=== PATIENT | female | born 1965 | race Caucasian/White ===

== ENCOUNTER 2017-09-09 14:44 | Inpatient (IN) | payer MEDICAID, OTHER ==
[~2017-09-09] VITALS: Ht 160 cm; Wt 70.8 kg
[~2017-09-09 14:44] MED LIST: ADVA250A INH; BENZ1TAB PO; COGE1INJ IM; LURA40 PO; VENL100T PO; VIST25CA PO; ZOCO5TAB PO
[2017-09-09 15:18] VITALS: BP 126/105; PULSE 97; RESP 18; TEMP 98.2; O2SAT 98
--- NOTE | 2017-09-09 15:38 | PD ---
HPI Chief Complaint: psychiatric Time Seen by Provider: 15:25 Travel History International Travel<30 days: No Contact w/Intl Traveler<30days: No Traveled to known affect area: No History of Present Illness HPI 51-year-old female requesting psychiatric evaluation. Patient has history of schizophrenia. Patient states that she has not taken her medications for the past 2 days. Patient called EMS to get to the hospital. Patient states that she told EMS that she had chest pain however she denied chest pain to me. Patient denies any headache. Patient denies any neck pain. Patient denies any chest pain or shortness of breath. Patient denies abdominal pain. Patient denies any focal weakness or numbness of extremity. Patient has history of asthma and hyperlipidemia. Patient denies any alcohol or drug abuse. PFSH Past Medical History Asthma: Yes Anxiety: Yes Depression: Yes High Cholesterol: Yes Diabetes: No Diminished Hearing: No Genitourinary: Yes (OVERACTIVE BLADDER) Psychiatric: Yes Respiratory: Yes (ASTHMA) Immunizations Current: No Schizophrenia: Yes Menopausal: Yes : 4 Para: 0 : 4 Past Surgical History Genitourinary Surgery: Yes (MESH-SLING BLADDER 2005) Other Surgery: Yes (PLASTIC SURGERY: BREASTS, NOSE, EYELIDS) Social History Alcohol Use: Yes (OCC) Tobacco Use: Yes (1ppd) Substance Use: Yes Allergies-Medications (Allergen,Severity, Reaction): Coded Allergies: tramadol (Verified Allergy, Severe, ITCHING, 09/09/17) Reported Meds & Prescriptions Reported Meds & Active Scripts Active Reported Zocor (Simvastatin) 5 Mg Tab 5 Mg PO DAILY Vistaril (Hydroxyzine Pamoate) 25 Mg Cap 25 Mg PO HS Latuda (Lurasidone) 40 Mg Tab 40 Mg PO DAILY Effexor (Venlafaxine HCl) 100 Mg Tab 100 Mg PO Q12H Advair Diskus Inh (Fluticasone-Salmeterol Inh) 250-50 Mcg/Blist Aer 1 Puff INH BID Rinse mouth after use. Review of Systems General / Constitutional: No: Fever Eyes: No: Visual changes HENT: No: Headaches Cardiovascular: No: Chest Pain or Discomfort Respiratory: No: Shortness of Breath Gastrointestinal: No: Abdominal Pain Genitourinary: No: Dysuria Musculoskeletal: No: Pain Skin: No Rash Neurologic: No: Weakness Psychiatric: No: Depression Endocrine: No: Polydipsia Hematologic/Lymphatic: No: Easy Bruising Physical Exam Narrative GENERAL: Well-nourished, well-developed patient. SKIN: Focused skin assessment warm/dry. HEAD: Normocephalic. EYES: No scleral icterus. No injection or drainage. NECK: Supple, trachea midline. No JVD or lymphadenopathy. CARDIOVASCULAR: Regular rate and rhythm without murmurs, gallops, or rubs. RESPIRATORY: Breath sounds equal bilaterally. No accessory muscle use. GASTROINTESTINAL: Abdomen soft, non-tender, nondistended. MUSCULOSKELETAL: No cyanosis, or edema. BACK: Nontender without obvious deformity. No CVA tenderness. Neurologic exam normal. Data Data Last Documented VS Vital Signs Date Time Temp Pulse Resp B/P (MAP) Pulse Ox O2 Delivery O2 Flow Rate FiO2 09/09/17 15:18 98.2 97 18 126/105 (112) 98 Orders Orders Complete Blood Count With Diff (09/09/17 15:33) Comprehensive Metabolic Panel (09/09/17 15:33) Thyroid Stimulating Hormone (09/09/17 15:33) Psych Screen (09/09/17 15:33) Drug Screen, Random Urine (09/09/17 15:33) Electrocardiogram (09/09/17 15:34) Labs Laboratory Tests Test 09/09/17 15:50 White Blood Count 7.9 TH/MM3 Red Blood Count 4.76 MIL/MM3 Hemoglobin 15.2 GM/DL Hematocrit 44.7 % Mean Corpuscular Volume 93.9 FL Mean Corpuscular Hemoglobin 31.9 PG Mean Corpuscular Hemoglobin Concent 33.9 % Red Cell Distribution Width 13.4 % Platelet Count 245 TH/MM3 Mean Platelet Volume 9.1 FL Neutrophils (%) (Auto) 63.7 % Lymphocytes (%) (Auto) 26.1 % Monocytes (%) (Auto) 9.2 % Eosinophils (%) (Auto) 0.6 % Basophils (%) (Auto) 0.4 % Neutrophils # (Auto) 5.0 TH/MM3 Lymphocytes # (Auto) 2.1 TH/MM3 Monocytes # (Auto) 0.7 TH/MM3 Eosinophils # (Auto) 0.0 TH/MM3 Basophils # (Auto) 0.0 TH/MM3 CBC Comment DIFF FINAL Differential Comment Blood Urea Nitrogen 9 MG/DL Creatinine 1.02 MG/DL Random Glucose 121 MG/DL Total Protein 8.7 GM/DL Albumin 4.6 GM/DL Calcium Level 8.8 MG/DL Alkaline Phosphatase 88 U/L Aspartate Amino Transf (AST/SGOT) 21 U/L Alanine Aminotransferase (ALT/SGPT) 26 U/L Total Bilirubin 0.7 MG/DL Sodium Level 140 MEQ/L Potassium Level 3.9 MEQ/L Chloride Level 106 MEQ/L Carbon Dioxide Level 23.5 MEQ/L Anion Gap 11 MEQ/L Estimat Glomerular Filtration Rate 57 ML/MIN Thyroid Stimulating Hormone 3rd Gen 1.340 uIU/ML Urine Opiates Screen NEG Urine Barbiturates Screen NEG Urine Amphetamines Screen NEG Urine Benzodiazepines Screen NEG Urine Cocaine Screen NEG Urine Cannabinoids Screen NEG MDM Medical Decision Making Medical Screen Exam Complete: Yes Emergency Medical Condition: Yes Interpretation(s) 1704 PM. CBC within normal limit. Creatinine 1.02. Urine drug screen negative. Differential Diagnosis Differential diagnosis including schizophrenia, adjustment disorder, psychosis Narrative Course 51-year-old female requesting psychiatric evaluation. History of schizophrenia. 1704 PM. Patient is medically cleared for psychiatric evaluation and disposition. Dada Johnson MD Sep 09, 2017 15:38
[2017-09-09 16:23] LABS: BASOPHIL % 0.4 % (0.0-2.0); EOSINOPHIL % 0.6 % (0.0-4.0); HEMATOCRIT 44.7 % (35.0-46.0); HEMOGLOBIN 15.2 GM/DL (11.6-15.3); LYMPH % 26.1 % (9.0-44.0); LYMPHOCYTE # 2.1 TH/MM3 (1.0-4.8); MEAN CELL VOLUME 93.9 FL (80.0-100.0); MEAN CORPUSCULAR HEMOGLOBIN 31.9 PG (27.0-34.0); MEAN CORPUSCULAR HGB CONC 33.9 % (32.0-36.0); MEAN PLATELET VOLUME 9.1 FL (7.0-11.0); MONO % 9.2 % (0.0-8.0); MONOCYTE # 0.7 TH/MM3 (0-0.9); NEUT % 63.7 % (16.0-70.0); PLATELET COUNT 245 TH/MM3 (150-450); RED BLOOD COUNT 4.76 MIL/MM3 (4.00-5.30); RED CELL DISTRIBUTION WIDTH 13.4 % (11.6-17.2); WHITE BLOOD COUNT 7.9 TH/MM3 (4.0-11.0)
[2017-09-09 16:36] LABS: ALBUMIN 4.6 GM/DL (3.4-5.0); ALT (GPT) 26 U/L (10-53); AST (GOT) 21 U/L (15-37); BICARBONATE 23.5 MEQ/L (21.0-32.0); BLOOD UREA NITROGEN 9 MG/DL (7-18); CALCIUM 8.8 MG/DL (8.5-10.1); CHLORIDE 106 MEQ/L (98-107); CREATININE 1.02 MG/DL (0.50-1.00); GLOMERULAR FILTRATION RATE 57 ML/MIN (>89); GLUCOSE,RANDOM 121 MG/DL (74-106); SODIUM (NA) 140 MEQ/L (136-145)
[2017-09-09 16:46] LABS: ALKALINE PHOSPHATASE 88 U/L (45-117); TOTAL BILIRUBIN ADULT 0.7 MG/DL (0.2-1.0); TOTAL PROTEIN 8.7 GM/DL (6.4-8.2)
[2017-09-09 19:20] VITALS: BP 128/75; PULSE 89; RESP 18; O2SAT 97
[2017-09-09] MEDS ORDERED: diphenhydrAMINE HCL 50 MG CAP PO ONE (20:45)
[2017-09-09 21:05] VITALS: BP 123/66; PULSE 88; RESP 18; TEMP 98.4
[2017-09-10 06:39] VITALS: BP 97/67; PULSE 60; RESP 16; O2SAT 97
[2017-09-10 10:57] VITALS: BP 112/76; PULSE 89; RESP 18; O2SAT 98
[2017-09-10 17:46] VITALS: BP 121/77; PULSE 97; RESP 18; O2SAT 97
[2017-09-10] MEDS ORDERED: ALUMINUM/MAGNESIUM/SIMETH 30 ML CUP PO PRN (21:00)
[2017-09-10] MEDS ORDERED: MAGNESIUM HYDROXIDE SUSP 30 ML CUP PO PRN (21:00)
[2017-09-10] MEDS ORDERED: LORazepam 2 MG/ML VIAL IM PRN (21:00)
[2017-09-10] MEDS ORDERED: LORazepam 1 MG TAB PO PRN (21:00)
[2017-09-10 22:30] VITALS: BP 143/93; PULSE 85; RESP 16; TEMP 98.2; O2SAT 97
[2017-09-11 05:59] VITALS: BP 115/65; PULSE 67; RESP 16; TEMP 97.8; O2SAT 97
[2017-09-11] MEDS: BUDESONIDE-FORMOTEROL 160/4.5 MCG INHALER INH SCH ×3 (08:18→20:54)
[2017-09-11 08:41] LABS: CHOLESTEROL 205 MG/DL (120-200); MAGNESIUM 2.4 MG/DL (1.5-2.5); PHOSPHORUS 3.6 MG/DL (2.5-4.9); TRIGLYCERIDES 125 MG/DL (42-150)
[2017-09-11 09:07] LABS: CHOLESTEROL/ HDL RATIO 3.35 RATIO; HDL CHOLESTEROL 61.1 MG/DL (40.0-60.0); LDL CHOLESTEROL 119 MG/DL (0-99)
[2017-09-11] MEDS ORDERED: hydrOXYzine HCL 50 MG TAB PO PRN (13:30)
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
[2017-09-11] MEDS: LURASIDONE 40 MG TAB PO SCH (14:27)
[2017-09-11 16:39] LABS: HEMOGLOBIN A1C 5.4 % (4.3-6.0)
[2017-09-11] MEDS: ACETAMINOPHEN 325 MG TAB PO PRN (17:00)
[2017-09-11 17:34] VITALS: BP 112/74; PULSE 93; RESP 14; TEMP 97.8
[2017-09-11] MEDS: PRAVASTATIN SOD 10 MG TAB PO SCH (20:51)
[2017-09-11] MEDS: diphenhydrAMINE HCL 50 MG CAP PO PRN (20:52)
[2017-09-11] MEDS: VENLAFAXINE HCL 25 MG TAB PO SCH (20:52)
[2017-09-12 06:14] VITALS: BP 120/71; PULSE 65; RESP 16; TEMP 98.1; O2SAT 97
[2017-09-12] MEDS: LURASIDONE 40 MG TAB PO SCH (08:52)
[2017-09-12] MEDS: BUDESONIDE-FORMOTEROL 160/4.5 MCG INHALER INH SCH ×4 (08:53→20:27)
[2017-09-12] MEDS: VENLAFAXINE HCL 25 MG TAB PO SCH ×2 (08:53→20:28)
[2017-09-12] MEDS ORDERED: SIMVASTATIN 5 MG PO SCH (09:00)
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
--- NOTE | 2017-09-12 14:49 | HHI.PYPN ---
Subjective Chief Complaint: patient psychotic with auditory hallucinations paranoid Remarks Patient seen in her room with nurse mine, chart review, patient compliant medications. Patient states she is feeling somewhat better. Now denies voices or visions and denies suicidality. For now continue treatment Review of Systems Except as stated in HPI: all other systems reviewed are Neg Mental Status Examination Appearance: Disheveled Consciousness: Alert (mildly) Orientation: Person, Place, Date/Time, Situation Motor Activity: Normal gait Speech: Unremarkable Language: Adequate Fund of Knowledge: Adequate Attention and Concentration: Other (fair) Memory: Unremarkable Affect: Irritable, Sad Thought Process & Associations: Disorganized Thought Content: Bizarre thinking Hallucination Type: None Delusion Type: Paranoid Suicidal Ideation: No Suicidal Plan: No Suicidal Intention: No Homicidal Ideation: No Homicidal Plan: No Homicidal Intention: No Insight: Poor Judgment: Poor Results Vitals/IOs Vital Signs Date Time Temp Pulse Resp B/P (MAP) Pulse Ox O2 Delivery O2 Flow Rate FiO2 09/12/17 06:14 98.1 65 16 120/71 (87) 97 09/10/17 17:46 Room Air Intake and Output 09/12/17 09/12/17 09/13/17 08:00 16:00 00:00 Intake Total 480 ml Balance 480 ml Assessment & Plan Problem List: (1) Schizophrenia ICD Codes: F20.9 - Schizophrenia, unspecified Status: Chronic Assessment & Plan Estimated LOS: days patient showing some slight improvement. Compliant medication. She still somewhat vigilant for she does deny voices and suicidality. For now continue treatment Justification for Cont. Inpt. At this time patient will decompensate if placed in the lower level of care Discharge Planning To be determined Request HC Surrog/Guard Advoc?: No Problem Qualifiers (1) Schizophrenia: Qualified Codes: F20.0 - Paranoid schizophrenia Eleazar Overton MD Sep 12, 2017 14:49
[2017-09-12 18:00] VITALS: BP 111/72; PULSE 90; RESP 16; TEMP 97.8; O2SAT 98
[2017-09-12] MEDS: diphenhydrAMINE HCL 50 MG CAP PO PRN (20:28)
[2017-09-12] MEDS: PRAVASTATIN SOD 10 MG TAB PO SCH (20:28)
[2017-09-13 06:06] VITALS: BP 112/63; PULSE 100; RESP 15; TEMP 98.3; O2SAT 99
[2017-09-13] MEDS: LURASIDONE 40 MG TAB PO SCH (08:52)
[2017-09-13] MEDS: VENLAFAXINE HCL 25 MG TAB PO SCH ×2 (08:52→22:07)
[2017-09-13] MEDS: BUDESONIDE-FORMOTEROL 160/4.5 MCG INHALER INH SCH ×3 (09:00→21:00)
[2017-09-13] MEDS: ACETAMINOPHEN 325 MG TAB PO PRN (09:30)
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
[2017-09-13 18:06] VITALS: BP 119/77; PULSE 99; RESP 18; TEMP 97.6; O2SAT 97
[2017-09-13] MEDS: PRAVASTATIN SOD 10 MG TAB PO SCH (22:08)
[2017-09-13] MEDS: diphenhydrAMINE HCL 50 MG CAP PO PRN (22:08)
[2017-09-14 06:07] VITALS: BP 125/72; PULSE 72; RESP 18; TEMP 98.8; O2SAT 98
[2017-09-14] MEDS: LURASIDONE 40 MG TAB PO SCH (09:00)
[2017-09-14] MEDS: BUDESONIDE-FORMOTEROL 160/4.5 MCG INHALER INH SCH ×2 (09:00→21:45)
[2017-09-14] MEDS: VENLAFAXINE HCL 25 MG TAB PO SCH ×2 (09:00→21:08)
--- NOTE | 2017-09-14 13:04 | HHI.PYPN ---
Subjective Chief Complaint: patient psychotic with auditory hallucinations paranoid Remarks Patient was seen and case discussed with nursing. Patient is rather concrete with a bizarre thought process. She is perseverant on smoking when she leaves. She denies auditory visual hallucinations. Behaving well on the unit Mental Status Examination Appearance: Disheveled Consciousness: Alert Orientation: Person, Place, Date/Time Motor Activity: Other (No motor abnormalities noted.) Speech: Unremarkable Language: Adequate Fund of Knowledge: Adequate Attention and Concentration: Other (fair) Memory: Unremarkable Mood: Other (Depressed) Affect: Blunt Thought Process & Associations: Tangential Thought Content: Bizarre thinking, Delusional Hallucination Type: None Delusion Type: Paranoid Suicidal Ideation: No Suicidal Plan: No Suicidal Intention: No Homicidal Ideation: No Homicidal Plan: No Homicidal Intention: No Insight: Poor Judgment: Poor Results Vitals/IOs Vital Signs Date Time Temp Pulse Resp B/P (MAP) Pulse Ox O2 Delivery O2 Flow Rate FiO2 09/14/17 06:07 98.8 72 18 125/72 (89) 98 09/10/17 17:46 Room Air Intake and Output 09/14/17 09/14/17 09/15/17 08:00 16:00 00:00 Intake Total 240 ml Balance 240 ml Assessment & Plan Problem List: (1) Schizophrenia ICD Codes: F20.9 - Schizophrenia, unspecified Status: Chronic Assessment & Plan Nicotine patch Justification for Cont. Inpt. Patient would decompensate in a less restrictive setting Request HC Surrog/Guard Advoc?: No Problem Qualifiers (1) Schizophrenia: Qualified Codes: F20.0 - Paranoid schizophrenia Jorge Hopper DO Sep 14, 2017 13:04
[2017-09-14] MEDS: NICOTINE 14 MG/24 HR PATCH T-DERMAL SCH (14:00)
[2017-09-14 18:37] VITALS: BP 137/80; PULSE 92; RESP 17; TEMP 97.3; O2SAT 98
[2017-09-14] MEDS: REMOVE OLD NICODERM (NICOTINE) PATCH T-DERMAL SCH (21:00)
[2017-09-14] MEDS: PRAVASTATIN SOD 10 MG TAB PO SCH (21:08)
[2017-09-15 06:00] VITALS: BP 113/65; PULSE 69; RESP 18; TEMP 97.7; O2SAT 98
[2017-09-15] MEDS: LURASIDONE 40 MG TAB PO SCH (08:13)
[2017-09-15] MEDS: BUDESONIDE-FORMOTEROL 160/4.5 MCG INHALER INH SCH ×2 (08:13→21:51)
[2017-09-15] MEDS: VENLAFAXINE HCL 25 MG TAB PO SCH ×2 (08:13→21:50)
[2017-09-15] MEDS: NICOTINE 14 MG/24 HR PATCH T-DERMAL SCH (08:13)
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
[2017-09-15 18:00] VITALS: BP 105/75; PULSE 93; RESP 16; TEMP 98; O2SAT 98
[2017-09-15] MEDS: REMOVE OLD NICODERM (NICOTINE) PATCH T-DERMAL SCH (21:00)
[2017-09-15] MEDS: PRAVASTATIN SOD 10 MG TAB PO SCH (21:50)
[2017-09-16 06:05] VITALS: BP 110/60; PULSE 57; RESP 16; TEMP 97.8; O2SAT 97
[2017-09-16] MEDS: LURASIDONE 40 MG TAB PO SCH (08:43)
[2017-09-16] MEDS: BUDESONIDE-FORMOTEROL 160/4.5 MCG INHALER INH SCH (08:43)
[2017-09-16] MEDS: VENLAFAXINE HCL 25 MG TAB PO SCH (08:43)
[2017-09-16] MEDS: NICOTINE 14 MG/24 HR PATCH T-DERMAL SCH (08:43)
[2017-09-16] MEDS: REMOVE OLD NICODERM (NICOTINE) PATCH T-DERMAL SCH (08:43)
[2017-09-16] MEDS ORDERED: VENL100T PO (12:59)
[2017-09-16] MEDS ORDERED: LURA40 PO (12:59)
[2017-09-16] MEDS ORDERED: Budeson-Formot 160-4.5 Mcg Inh INH (13:00)
[2017-09-16] MEDS ORDERED: VIST25CA PO (13:00)
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
== END 2017-09-16 15:40 | disposition home or self-care (01) | DRG 885 ==
LOC: NEPD 14:44 → NEDA 09-10 20:52 → H260 09-10 21:55
PROVIDERS: ADMIT Psychiatry & Neurology Psychiatry; ATTEND Psychiatry & Neurology Psychiatry
DX: F20.0 Paranoid schizophrenia (principal); N32.81 Overactive bladder; E78.5 Hyperlipidemia, unspecified; J45.909 Unspecified asthma, uncomplicated; Z81.8 Family history of other mental and behavioral disorders; Z62.810 Personal history of physical and sexual abuse in childhood; F17.210 Nicotine dependence, cigarettes, uncomplicated; Z79.51 Long term (current) use of inhaled steroids; Z79.899 Other long term (current) drug therapy
CPT/HCPCS: 80053; 80061; 80307; 82306; 82550; 82607; 83036; 83735; 84100; 84443; 84550; 85025; 86592; 99285; Q0163

== ENCOUNTER 2017-10-01 21:13 | Emergency (ER) | payer MEDICAID, OTHER ==
[~2017-10-01 21:13] MED LIST changes: -ADVA250A INH; -BENZ1TAB PO; +Budeson-Formot 160-4.5 Mcg Inh INH; -COGE1INJ IM; -ZOCO5TAB PO
[2017-10-01 21:25] VITALS: BP 141/78; PULSE 70; RESP 18; TEMP 97.9; O2SAT 99
--- NOTE | 2017-10-01 21:57 | PD ---
HPI Chief Complaint: GI Complaint Time Seen by Provider: 21:46 Travel History International Travel<30 days: No Contact w/Intl Traveler<30days: No Traveled to known affect area: No History of Present Illness HPI 51-year-old white female presents to emergency department by EMS for evaluation of nausea vomiting and diarrhea. She states that she started feeling ill earlier today. She felt run down and generalized weakness. She states that she had some pizza earlier this evening followed by vomiting. She does report having some diarrhea throughout the day. She has just been laying around the house. She denies any fever or chills. No cough, congestion, dysuria, frequency or rashes. Symptoms are mild now but were more moderate earlier. She has a states that she feels somewhat better after vomiting. PFSH Past Medical History Asthma: Yes Anxiety: Yes Depression: Yes Cancer: No Cardiovascular Problems: No High Cholesterol: Yes COPD: No Diabetes: No Diminished Hearing: No Endocrine: No Genitourinary: No Headaches: No Immune Disorder: No Musculoskeletal: No Neurologic: No Psychiatric: Yes (Schizophrenia) Reproductive: No Respiratory: Yes (ASTHMA) Immunizations Current: No Schizophrenia: Yes (schizo-affective) Seizures: No Sleep Apnea: No ?: Not Menopausal: Yes : 4 Para: 0 : 4 Past Surgical History Abdominal Surgery: No Cardiac Surgery: No Ear Surgery: No Endocrine Surgery: No Eye Surgery: Yes Genitourinary Surgery: No Gynecologic Surgery: Yes Oral Surgery: No Thoracic Surgery: No Other Surgery: Yes (PLASTIC SURGERY: BREASTS, NOSE, EYELIDS) Social History Alcohol Use: Yes (OCC) Tobacco Use: Yes (1ppd) Substance Use: No Allergies-Medications (Allergen,Severity, Reaction): Coded Allergies: tramadol (Verified Allergy, Severe, ITCHING, 09/09/17) Reported Meds & Prescriptions Reported Meds & Active Scripts Active [Budeson-Formot 160-4.5 Mcg Inh] 60 PUFF Aero 1 Puff INH BID Vistaril (Hydroxyzine Pamoate) 25 Mg Cap 25 Mg PO HS Latuda (Lurasidone) 40 Mg Tab 40 Mg PO DAILY Effexor (Venlafaxine HCl) 100 Mg Tab 100 Mg PO Q12H Review of Systems Except as stated in HPI: all other systems reviewed are Neg Physical Exam Narrative GENERAL: Well-developed, well-nourished in no apparent distress. Nontoxic appearing. HEAD: Normocephalic, atraumatic. EYES: Pupils equal round and reactive. Extraocular motions intact. No scleral icterus. No injection or drainage. ENT: Nose clear. Throat without erythema, tonsillar hypertrophy or exudate. Uvula midline. Airway patent. NECK: Trachea midline. Supple, nontender, moves head freely. No central bony tenderness or spasm. CARDIOVASCULAR: Regular rate and rhythm without murmurs, gallops, or rubs. RESPIRATORY: Clear to auscultation. Breath sounds equal bilaterally. No wheezes , rales, or rhonchi. GASTROINTESTINAL: Abdomen soft, non-tender, nondistended. No hepato-splenomegaly , or palpable masses. No guarding. EXTREMITIES: No clubbing, cyanosis, or edema. No joint tenderness. BACK: Nontender without deformity. No flank tenderness. NEUROLOGICAL: Awake, alert and oriented x 3 .Cranial nerves grossly intact. Motor and sensory grossly within normal limits. Normal speech. Data Data Last Documented VS Vital Signs Date Time Temp Pulse Resp B/P (MAP) Pulse Ox O2 Delivery O2 Flow Rate FiO2 10/01/17 21:25 97.9 70 18 141/78 (99) 99 Orders Orders Iv Access Insert/Monitor (10/01/17 21:46) Sodium Chlor 0.9% 1000 Ml Inj (Ns 1000 M (10/01/17 22:00) Diphenhydramine Inj (Benadryl Inj) (10/01/17 22:00) Metoclopramide Inj (Reglan Inj) (10/01/17 22:00) Hyoscyamine (Levsin) (10/01/17 22:00) Ed Discharge Order (10/02/17 00:01) [facility] Medical Decision Making Medical Screen Exam Complete: Yes Emergency Medical Condition: Yes Medical Record Reviewed: Yes Differential Diagnosis Differential diagnosis: Vomiting, diarrhea, UTI, gastroenteritis Narrative Course IV access is obtained. Patient's given a liter bolus of normal saline, Benadryl 50 no grams IV, Reglan 10 mg IV and 2 Levsin 0.125 mg sublingual. The patient is resting comfortable. She has had resolution of her nausea, vomiting. She has been able take by mouth fluids without difficulty. This is vomiting, diarrhea Diagnosis Primary Impression: Vomiting Qualified Codes: R11.2 - Nausea with vomiting, unspecified Additional Impression: Diarrhea Qualified Codes: R19.7 - Diarrhea, unspecified Patient Instructions: General Instructions Additional Instructions: Rest. Increase fluids. Imodium A-D or Kaopectate for diarrhea. Zofran for any nausea. Follow-up with a primary care doctor the next 2 days for recheck. Return to the ER for any problems. Med/Other Pt SpecificInfo: Prescription(s) given Disposition: 01 DISCHARGE HOME Condition: Stable Harshil Justice Oct 01, 2017 21:57
[2017-10-01] MEDS ORDERED: HYOSCYAMINE 0.125 MG TAB PO ONE (22:00)
[2017-10-01] MEDS ORDERED: diphenhydrAMINE HCL 50 MG/ML VIAL IV PUSH ONE (22:00)
[2017-10-01] MEDS ORDERED: SODIUM CHLOR 0.9% 1000 ML INJ 1,000 ML IV ONE (22:00)
[2017-10-01] MEDS ORDERED: METOCLOPRAMIDE HCL 10 MG/2 ML VIAL IV PUSH ONE (22:00)
[2017-10-02] MEDS ORDERED: ZOFR4TAB3 SL (00:03)
== END 2017-10-02 01:05 | disposition home or self-care (01) ==
LOC: NEDAMB 21:13 → NEPD 10-02 01:05
DX: R11.2 Nausea with vomiting, unspecified (principal); R19.7 Diarrhea, unspecified; J45.909 Unspecified asthma, uncomplicated; F32.9 Major depressive disorder, single episode, unspecified; E78.00 Pure hypercholesterolemia, unspecified; F20.9 Schizophrenia, unspecified; F41.9 Anxiety disorder, unspecified; F17.210 Nicotine dependence, cigarettes, uncomplicated
CPT/HCPCS: 96374; 96375; 99284; J1200; J2765; J7030